=== PATIENT | male | born 1935 | race Caucasian/White ===

== ENCOUNTER → 2016-10-24 | Day surgery (SDC) | payer MEDICARE, OTHER ==
[~2016-10-24] MED LIST: Lactated Ringers 1,000 ML IV SCH; Propofol 200 MG/20 ML SDV ONE; fentaNYL 100 MCG/2 ML SDV ONE
[2016-10-24 10:45] VITALS: BP 125/75
--- NOTE | 2016-10-24 12:38 | OR ---
DATE OF PROCEDURE: 10/24/2016 PREOPERATIVE DIAGNOSIS: History of precancerous colon polyps. POSTOPERATIVE DIAGNOSES: Small right colon polyp, diverticulosis, history of precancerous colon polyps. PROCEDURE: Colonoscopy to the cecum with biopsy resection of small right colon polyp. SURGEON: David Cavazos MD. ANESTHESIA: IV anesthesia with monitored anesthesia care. INDICATION: This 81-year-old white male is referred for a colonoscopy. He has a history of precancerous colon polyps. His last colonoscopic exam was done about a year ago , he says. I counseled him for a colonoscopy with possible biopsy and/or polypectomy including risks and alternatives, and he gave his informed consent to proceed. DESCRIPTION OF PROCEDURE: The patient was placed in the left lateral decubitus position. IV anesthesia was administered by the Anesthesia Service. Time-out was held. A rectal exam was performed, which was unremarkable. The flexible video Olympus colonoscope was introduced through his anus, up his rectum, and out his colon all the way to the cecum. En route, we saw several left-sided diverticula. There was no bleeding or inflammation associated with them. Also en route in the right colon, we saw a small polyp, which was removed with a few bites of the biopsy forceps. Once the cecum was reached, the scope was slowly withdrawn, examining the mucosa throughout. No additional mucosal abnormalities were noted. The scope was retroflexed in the rectum with the distal rectum appearing unremarkable. The scope was straightened and removed. He tolerated the procedure well. David Cavazos MD /[id number] [facility]
== END ==
LOC: JP.SDS 07:03
PROVIDERS: ATTEND Surgery
DX: Z12.11 Encounter for screening for malignant neoplasm of colon (principal); D12.6 Benign neoplasm of colon, unspecified; Z86.010 Personal history of colon polyps; K57.30 Diverticulosis of large intestine without perforation or abscess without bleeding; I25.10 Atherosclerotic heart disease of native coronary artery without angina pectoris; E78.00 Pure hypercholesterolemia, unspecified; Z88.1 Allergy status to other antibiotic agents; Z88.8 Allergy status to other drugs, medicaments and biological substances; Z95.1 Presence of aortocoronary bypass graft; Z98.890 Other specified postprocedural states
CPT/HCPCS: 45380; 88305; J2704; J3010; J7120

== ENCOUNTER 2019-10-08 06:32 | Day surgery (SDC) | payer MEDICARE, OTHER ==
[2019-10-08] MEDS ORDERED: Sodium Chloride 0.9% 1,000 ML IV SCH (07:00)
[2019-10-08] MEDS ORDERED: Propofol 200 MG/20 ML SDV ONE (07:12)
[2019-10-08] MEDS ORDERED: Midazolam 1 MG/ML 2 ML SDV ONE (07:12)
[2019-10-08] MEDS ORDERED: fentaNYL 100 MCG/2 ML SDV ONE (07:12)
[2019-10-08 09:11] VITALS: BP 111/70; PULSE 63
--- NOTE | 2019-10-08 10:38 | OR ---
DATE OF PROCEDURE: 10/08/2019 SURGEON: Raffi Moore MD PROCEDURE: Colonoscopy. FINDINGS: 1. Ascending colon polyp, approximately 5 mm, completely removed using cold biopsy forceps. 2. Transverse colon polyp, approximately 5 mm, completely removed using cold biopsy forceps. 3. Sigmoid colon polyp, approximately 8 mm, completely removed using hot snare wire device. 4. Diverticulosis, very mild and early. COMPLICATIONS: None. 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 ANESTHESIA: MAC. PREOPERATIVE DIAGNOSIS: History of colon polyps. POSTOPERATIVE DIAGNOSIS: History of colon polyps. RISKS: Risks, benefits, alternatives, and limitations including, but not limited to infection, bleeding, and perforation were explained the patient, who wished to proceed. PROCEDURE IN DETAIL: The patient was placed in left lateral decubitus position. Digital rectal exam was performed without abnormality. The scope was introduced and advanced atraumatically to the ileocecal valve. A photo was taken. The scope was brought back through the ascending, transverse, descending colon, and retroflexed. No evidence of old or new blood. The aforementioned polyps were identified and completely removed as described above. No abnormal bleeding was noted after removal. No abnormalities on retroflexion. The diverticulosis was described as mild and early without evidence of diverticulitis or bleeding. Greater than 8 minutes was spent removing the scope. The patient tolerated the procedure well. Raffi Moore MD /[id number]
== END 2019-10-08 09:41 | disposition home or self-care (01) ==
LOC: JP.SDS 06:32
PROVIDERS: ATTEND Surgery
DX: Z12.11 Encounter for screening for malignant neoplasm of colon (principal); D12.2 Benign neoplasm of ascending colon; D12.3 Benign neoplasm of transverse colon; K57.30 Diverticulosis of large intestine without perforation or abscess without bleeding; Z86.010 Personal history of colon polyps; Z88.0 Allergy status to penicillin; Z88.8 Allergy status to other drugs, medicaments and biological substances
CPT/HCPCS: 45380; 45385; J2250; J2704; J3010; J7030; 88305

== ENCOUNTER 2020-04-20 16:29 | Observation (INO) | payer MEDICARE, OTHER ==
[2020-04-20] MEDS ORDERED: Lidocaine 1% with EPINEPHrine 1:100,000 50 ML MDV INFILT ONE (18:02)
[2020-04-20] MEDS ORDERED: Lidocaine 1% with EPINEPHrine 1:100,000 50 ML MDV ONE (18:05)
--- NOTE | 2020-04-20 18:11 | CRLCT ---
INDICATION: Fall. Head injury. TECHNIQUE: Noncontrast CT images were acquired through the brain. COMPARISON: None. FINDINGS: Prominence of the ventricles and sulci compatible with moderate diffuse cerebral volume loss. No mass effect or midline shift. The basal cisterns are preserved. 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 Small to moderate infarction in the inferior left parietal and left occipital lobes is age-indeterminate, though likely subacute to chronic. Patchy hypoattenuation in the supratentorial white matter, suggesting moderate chronic microvascular ischemic changes. No acute intracranial hemorrhage or pathologic extra-axial fluid collection. Advanced intracranial atherosclerotic calcifications. The globes are symmetric. The calvarium is intact. The visualized paranasal sinuses and mastoid air cells are clear. IMPRESSION: 1. No acute intracranial hemorrhage. 2. Small to moderate infarction involving the inferior left parietal and left occipital lobes is age-indeterminate, though likely subacute to chronic. MRI could be obtained for further evaluation as clinically warranted. 3. Small to moderate chronic infarction involving the high medial left parietal lobe. 4. Suggested moderate chronic microvascular ischemic changes. 5. Moderate diffuse cerebral volume loss. Please note that all CT scans at this facility use dose modulation, iterative reconstruction, and/or weight-based dosing when appropriate to reduce radiation dose to as low as reasonably achievable. Dictated by Francois Cabrera MD @ Apr 20 2020 6:03PM Signed by Dr. Francois Cabrera @ Apr 20 2020 6:09PM
--- NOTE | 2020-04-20 18:17 | CRLCT ---
INDICATION: Fall. Head injury. TECHNIQUE: Noncontrast CT images were acquired through the cervical spine. COMPARISON: None. FINDINGS: The cervical lordosis is maintained. No acute fracture, spondylolisthesis, or traumatic subluxation. Degenerative changes at the atlantodental articulation. Moderately advanced disc height loss at C5-6 and C6-7. Posterior disc osteophyte complex mildly narrows the spinal canal at C5-6. Multilevel uncovertebral joint spurring and facet arthropathy contributing to moderately severe left neural foraminal stenosis at C5-6 and moderate left neural foraminal narrowing at C6-7. Atherosclerotic calcifications of the carotid bifurcations. IMPRESSION: 1. No acute fracture or traumatic subluxation. 2. Multilevel cervical spondylosis. Please note that all CT scans at this facility use dose modulation, iterative reconstruction, and/or weight-based dosing when appropriate to reduce radiation dose to as low as reasonably achievable. Dictated by Francois Cabrera MD @ Apr 20 2020 6:03PM Signed by Dr. Francois Cabrera @ Apr 20 2020 6:15PM
[2020-04-20] MEDS ORDERED: Bacitracin Oint 1 GM U/D Packet TOP ONE (18:29)
--- NOTE | 2020-04-20 18:58 | EDM.PDOC ---
ED HPI GENERAL MEDICAL PROBLEM - General Chief Complaint: Head Injury Stated Complaint: [facility] Time Seen by Provider: 04/20/20 16:35 Source of Information: Reports: Patient, EMS, Family History Limitations: Reports: Altered Mental Status (Initially altered mental status, improved rapidly) - History of Present Illness INITIAL COMMENTS - FREE TEXT/NARRATIVE: 85-year-old male who donated blood earlier today, was working in his garage, on his hands and knees when he felt woozy and lightheaded. The next thing he remembers he woke up here in the hospital. He sustained a head injury in the garage, possibly stood up and fainted and has some retrograde amnesia. He also may have collapsed in a lower position. When EMS arrived he was very confused, combative, and when they tried to move him he seemed to want to lean to the left like the left side was weak. Speech was garbled. He was transferred urgently to the emergency room. He was obviously bleeding from the scalp. Onset: Sudden Duration: Hour(s): (Within the last hour) Location: Reports: Head (Head injury) Associated Symptoms: Reports: Confusion, Syncope, Weakness, Other (Unknown period of loss of consciousness) Neck Pain Score (Numeric/FACES): 8 - Related Data Allergies Allergy/AdvReac Type Severity Reaction Status Date / Time amoxicillin [Amoxicillin] Allergy Severe Rash Verified 10/20/16 10:36 clopidogrel [From Plavix] Allergy Rash Verified 10/20/16 10:36 Home Meds: Home Meds Fish Oil/Borage/Flax/Om3,6,9 1 [[place] 3-6-9 Complex Softgel] 3 cap PO DAILY 11/26/12 [History] Rosuvastatin [Crestor] 10 mg PO DAILY 11/26/12 [History] Tamsulosin HCl [Flomax] 0.4 mg PO DAILY 11/26/12 [History] Triamcinolone Acetonide [Kenalog 0.1% Crm] 1 applic TOP TID 11/26/12 [History] metroNIDAZOLE [Metrogel] 0.75 applicful TOP ASDIRECTED PRN 11/26/12 [History] Fluticasone Propionate [Flonase] 2 spray NS DAILY 10/09/15 [History] Betamethasone Dipropionate [Diprolene AF 0.05% Crm] 50 gm .XX DAILY 04/20/20 [History] Past Medical History HEENT History: Reports: Hard of Hearing, Impaired Vision Other HEENT History: wears glasses; hearing aides Cardiovascular History: Reports: Bypass, CAD, High Cholesterol, Syncope, Other (See Below) Gastrointestinal History: Reports: Colon Polyp Genitourinary History: Reports: Prostate Disorder, Renal Calculus Musculoskeletal History: 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, Other (See Below) Other Musculoskeletal History: left hand fingers Hematologic History: Reports: Blood Transfusion(s) Dermatologic History: Reports: Other (See Below) Other Dermatologic History: fungus- behind ears/ side of cheek - Infectious Disease History Infectious Disease History: Reports: Chicken Pox, Measles, Shingles - Past Surgical History HEENT Surgical History: Reports: Cataract Surgery Cardiovascular Surgical History: Reports: Carotid Endarterectomy, Coronary Artery Bypass, Other (See Below) Other Cardiovascular Surgeries/Procedures: CABG x4 in 1991 GI Surgical History: Reports: Colonoscopy, Hernia, Inguinal, Hernia Repair/Other, Polypectomy Male Surgical History: Reports: None Neurological Surgical History: Reports: None Musculoskeletal Surgical History: Reports: Shoulder Surgery Dermatological Surgical History: Reports: None Social & Family History - Family History Family Medical History: No Pertinent Family History HEENT: Reports: Cataract, Hearing Impairment, Impaired Vision Cardiac: Reports: Heart Failure GI: Reports: None : Reports: None OBGYN: Reports: None Musculoskeletal: Reports: None Neurological: Reports: None Psychiatric: Reports: None - Tobacco Use Tobacco Use Status *Q: Never Tobacco User - Caffeine Use Caffeine Use: Reports: Coffee - Recreational Drug Use Recreational Drug Use: No ED ROS GENERAL - Review of Systems Review Of Systems: See Below Constitutional: Denies: Fever, Chills HEENT: Denies: Vision Change Respiratory: Denies: Shortness of Breath GI/Abdominal: Denies: Abdominal Pain, Nausea, Vomiting Musculoskeletal: Reports: No Symptoms Skin: Reports: Other (Abrasions and lacerations are present on the frontal scalp) Neurological: Reports: Confusion, Dizziness, Syncope. Denies: Headache Psychiatric: Reports: No Symptoms ED EXAM, HEAD INJURY - Physical Exam Exam: See Below Text/Narrative:: Shortly after the patient arrived, his mental status started improving rapidly. Speech became clear and he started answering questions appropriately. He really had no specific complaints. General Appearance: Alert, No Apparent Distress Head: Other (Obvious injuries to the frontal scalp with a curved 2.5 cm scalp laceration and a second shallower laceration 1.5 cm above the left eyebrow) Eyes: Bilateral Eye: Normal Inspection, PERRL Nose: Other (A small amount of bruising over the nasal bridge) Neck: Non-Tender Respiratory: No Respiratory Distress, Lungs Clear Cardiovascular: Regular Rate, Rhythm Extremities: Normal Inspection Neurologic: No Motor/Sensory Deficits, Alert, Normal Mood/Affect, Oriented x 3 - Evin Coma Score Best Eye Response ([place]vin): (4) Open Spontaneously Best Verbal Response ([place]): (5) Oriented Best Motor Response ([place]): (6) Obeys Commands Course - Vital Signs Last Recorded V/S: Last Vital Signs Temp 96.1 F L 04/21/20 11:00 Pulse 61 04/21/20 11:00 Resp 18 04/21/20 11:00 BP 108/63 04/21/20 11:00 Pulse Ox 100 04/21/20 11:00 - Orders/Labs/Meds Meds: Medications Discontinued Medications Generic Name Dose Route Start Last Admin Trade Name Freq PRN Reason Stop Dose Admin Acetaminophen 650 mg 04/20/20 20:30 04/21/20 07:26 Acetaminophen 325 Mg Tab PO 650 mg Q4H PRN Administration Pain (Mild 1-3)/fever Bacitracin 1 dose 04/20/20 18:29 04/20/20 18:35 Bacitracin Oint 1 Gm U/D Packet TOP 04/20/20 18:30 1 dose ONETIME ONE Administration Sodium Chloride 1,000 mls @ 125 mls/hr 04/20/20 20:00 04/21/20 05:40 Normal Saline IV 125 mls/hr ASDIRECTED CHRISTINE Administration Lidocaine/Epinephrine Confirm 04/20/20 18:05 04/20/20 18:45 Lidocaine 1% With Epinephrine 1:100,000 50 Ml Mdv Administered 04/20/20 18:06 Not Given Dose 50 ml .ROUTE .STK-MED ONE Lidocaine/Epinephrine 30 ml 04/20/20 18:02 04/20/20 18:36 Lidocaine 1% With Epinephrine 1:100,000 50 Ml Mdv INFILT 04/20/20 18:03 30 ml ONETIME ONE Administration Morphine Sulfate 2 mg 04/20/20 20:30 Morphine 2 Mg/Ml Syringe IVPUSH Q2H PRN Pain (severe 7-10) Ondansetron HCl 4 mg 04/20/20 19:50 04/20/20 20:25 Ondansetron 4 Mg/2 Ml Sdv IVPUSH 04/20/20 19:51 4 mg ONETIME ONE Administration Ondansetron HCl 4 mg 04/20/20 20:30 Ondansetron 4 Mg Tab.Dis PO Q6H PRN Nausea able to take PO Ondansetron HCl 4 mg 04/20/20 20:30 Ondansetron 4 Mg/2 Ml Sdv IV Q4H PRN Nausea/Vomiting Oxycodone HCl 5 mg 04/20/20 20:30 Oxycodone 5 Mg Tab PO Q4H PRN Pain (moderate 4-6) Tamsulosin HCl 0.4 mg 04/21/20 09:00 04/21/20 10:15 Tamsulosin 0.4 Mg Cap.Er PO Not Given DAILY CHRISTINE - Re-Assessments/Exams Free Text/Narrative Re-Assessment/Exam: 04/20/20 18:57 Patient was sent to CT urgently for a head CT and cervical spine CT. By the time he arrived back from CT scan he was almost back to baseline. CTs were negative. The wounds on his forehead were cleaned with saline, infiltrated with 1% lidocaine with epinephrine, and the forehead laceration was closed with 3 tiffanie, the laceration above the eyebrow with three 5-0 Ethilon sutures. If he can ambulate without difficulty he can go home. 04/20/20 19:11 Patient tried ambulation twice, just too dizzy and unsteady to walk. He will be admitted for neuro checks and observation for significant concussion and closed head injury. Departure - Departure Time of Disposition: 20:20 Disposition: Admitted As Inpatient 66 Clinical Impression: Concussion with less than 1 hour loss of consciousness Scalp laceration Qualifiers: Encounter type: subsequent encounter Qualified Code(s): S01.01XD - Laceration without foreign body of scalp, subsequent encounter - Discharge Information Sepsis Event Note (ED) - Evaluation Sepsis Screening Result: No Definite Risk
[2020-04-20] MEDS ORDERED: Ondansetron 4 MG/2 ML SDV IVPUSH ONE (19:50)
--- NOTE | 2020-04-20 20:23 | PCM.HP.2 ---
H&P History of Present Illness - General Date of Service: 04/20/20 Admit Problem/Dx: Admission Diagnosis/Problem Admission Diagnosis/Problem Closed head injury Source of Information: Patient, EMS Notes Reviewed, Family ( Diann), Provider, RN History Limitations: Reports: No Limitations - History of Present Illness Initial Comments - Free Text/Narative: chief complaint: head injury This is a 85 year old male in Emergency Dept. with Diann, who reports Mateo is generally healthy, they started their day with a big breakfast then went to donate blood at 11:30 am. They then came home and Mateo went straight to the garage to work on stuff, he doesn't remember anything after that until he woke up in the hospital. Diann reports she found Mateo injured call for their Daughter who called the ambulance. Once in the ER, he started to come back to normal. Head and Neck CT which were normal. Mateo had two lacerations to his head and forehead, which were sutured. He denies any concerns except when he tried to stand up and walk he became dizzy and weak. unable to walk due to loss of balance. Onset of Symptoms: Reports: Sudden Duration of Symptoms: Reports: Hour(s):, Constant Location: Reports: Head, Generalized (weakness and vertigo) Severity: Moderate Improves with: Reports: Rest Worsens with: Reports: Movement Context: Reports: Trauma (unwitnessed fall in garage) Associated Symptoms: Reports: Nausea/Vomiting, Weakness Neck Pain Score (Numeric/FACES): 8 - Related Data Allergies/Adverse Reactions: Allergies Allergy/AdvReac Type Severity Reaction Status Date / Time amoxicillin [Amoxicillin] Allergy Severe Rash Verified 10/20/16 10:36 clopidogrel [From Plavix] Allergy Rash Verified 10/20/16 10:36 Home Medications: Home Meds Fish Oil/Borage/Flax/Om3,6,9 1 [[place] 3-6-9 Complex Softgel] 3 cap PO DAILY 11/26/12 [History] Rosuvastatin [Crestor] 10 mg PO DAILY 11/26/12 [History] Tamsulosin HCl [Flomax] 0.4 mg PO DAILY 11/26/12 [History] Triamcinolone Acetonide [Kenalog 0.1% Crm] 1 applic TOP TID 10/21/13 [History] metroNIDAZOLE [Metrogel] 0.75 applicful TOP ASDIRECTED PRN 11/26/12 [History] Fluticasone Propionate [Flonase] 2 spray NS DAILY 10/09/15 [History] Betamethasone Dipropionate [Diprolene AF 0.05% Crm] 50 gm .XX DAILY 04/20/20 [History] Past Medical History HEENT History: Reports: Hard of Hearing, Impaired Vision Other HEENT History: wears glasses; hearing aides Cardiovascular History: Reports: Bypass, CAD, High Cholesterol, Syncope, Other (See Below) Gastrointestinal History: Reports: Colon Polyp Genitourinary History: Reports: Prostate Disorder, Renal Calculus Musculoskeletal History: 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, Other (See Below) Other Musculoskeletal History: left hand fingers Hematologic History: Reports: Blood Transfusion(s) Dermatologic History: Reports: Other (See Below) Other Dermatologic History: fungus- behind ears/ side of cheek - Infectious Disease History Infectious Disease History: Reports: Chicken Pox, Measles, Shingles - Past Surgical History HEENT Surgical History: Reports: Cataract Surgery Cardiovascular Surgical History: Reports: Carotid Endarterectomy, Coronary Artery Bypass, Other (See Below) Other Cardiovascular Surgeries/Procedures: CABG x4 in 1991 GI Surgical History: Reports: Colonoscopy, Hernia, Inguinal, Hernia Repair/Other, Polypectomy Male Surgical History: Reports: None Neurological Surgical History: Reports: None Musculoskeletal Surgical History: Reports: Shoulder Surgery Dermatological Surgical History: Reports: None Social & Family History - Family History Family Medical History: No Pertinent Family History HEENT: Reports: Cataract, Hearing Impairment, Impaired Vision Cardiac: Reports: Heart Failure GI: Reports: None : Reports: None OBGYN: Reports: None Musculoskeletal: Reports: None Neurological: Reports: None Psychiatric: Reports: None - Tobacco Use Tobacco Use Status *Q: Never Tobacco User - Caffeine Use Caffeine Use: Reports: Coffee - Recreational Drug Use Recreational Drug Use: No - Living Situation & Occupation Living situation: Reports: Occupation: Retired (lives with Diann, retired after 35 years with [employer] before that a reyes. Has 6 children, 15 grandchildren and 29 great grandchildren.) H&P Review of Systems - Review of Systems: Review Of Systems: See Below General: Reports: Weakness HEENT: Reports: Ear Pain (left ear feel plugged and full of wax), Glasses, Vertigo (since fall today), Other (closed head injury with laceration repair to two sites on head.). 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 - got hand caught in the picker feeder when he was 25 years old.) Skin: Reports: Wound (repair of two laceration to head) Psychiatric: Reports: No Symptoms Neurological: Reports: Dizziness, Difficulty Walking, Weakness Hematologic/Lymphatic: Reports: No Symptoms Immunologic: Reports: No Symptoms Exam - Exam Exam: See Below - Vital Signs Vital Signs: Last Vital Signs Temp 97.3 F 04/20/20 17:15 Pulse 99 04/20/20 19:46 Resp 15 04/20/20 18:23 BP 110/59 L 04/20/20 19:46 Pulse Ox 98 04/20/20 18:23 Weight: 160 lb - Exam General: Alert, Oriented, Cooperative HEENT: PERRLA, Conjunctiva Clear, Other (dentures present). No: TMs Clear (left ear canal with scant ceremen, TM is dark and dull) Neck: Trachea Midline. 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) Peripheral Pulses: 2+: Radial (L), Radial (R) Skin: Warm, Dry, Other (head is wrapped in bandage after laceration repair of scalp and forehead wounds.) Neurological: Reflexes Equal Bilateral, Strength Equal Bilateral, Normal Speech, Normal Tone, Sensation Intact Neuro Extensive - Mental Status: Alert, Oriented x3, Normal Mood/Affect, Normal Cognition, Memory Intact Neuro Extensive - Motor, Sensory, Reflexes: Normal Reflexes Psychiatric: Alert, Normal Affect, Normal Mood - Patient Data Lab Results Last 24 hrs: Laboratory Results - last 24 hr 04/20/20 Range/Units 19:57 WBC 13.8 H (4.5-11.0) K/uL RBC 4.26 L (4.30-5.90) M/uL Hgb 12.8 (12.0-15.0) g/dL Hct 38.9 L (40.0-54.0) % MCV 91 (80-98) fL MCH 30 (27-31) pg MCHC 33 (32-36) % Plt Count 244 (150-400) K/uL Neut % (Auto) 85 H (36-66) % Lymph % (Auto) 7 L (24-44) % [place] % (Auto) 8 H (2-6) % Eos % (Auto) 0 L (2-4) % Baso % (Auto) 0 (0-1) % Result Diagrams: 04/20/20 19:57 04/20/20 19:57 Sepsis Event Note - Evaluation Sepsis Screening Result: No Definite Risk - Focused Exam Vital Signs: Vital Signs Temp Pulse Resp BP Pulse Ox 04/20/20 19:46 99 110/59 L 04/20/20 18:23 91 15 95/53 L 98 04/20/20 17:34 99 100/44 L 95 04/20/20 17:15 97.3 F 100 23 H 100/51 L 97 04/20/20 16:36 97.3 F 70 19 111/40 L 79 L - Problem List (1) Closed head injury with loss of consciousness of unknown duration SNOMED Code(s): 106581138987, 595554555725 ICD Code: S06.9X9A - UNSP INTRACRANIAL INJURY W LOC OF UNSP DURATION, INIT Status: Acute Priority: High Current Visit: Yes (2) Concussion with less than 1 hour loss of consciousness SNOMED Code(s): 332018265 ICD Code: S06.0X9A - CONCUSSION W LOSS OF CONSCIOUSNESS OF UNSP DURATION, INIT Status: Acute Priority: High Current Visit: Yes (3) Scalp laceration SNOMED Code(s): 943050095 ICD Code: S01.01XA - LACERATION WITHOUT FOREIGN BODY OF SCALP, INITIAL ENCOUNTER Status: Acute Priority: High Current Visit: Yes Qualifiers: Encounter type: subsequent encounter Qualified Code(s): S01.01XD - Laceration without foreign body of scalp, subsequent encounter Problem List Initiated/Reviewed/Updated: Yes Orders Last 24hrs: Active Orders 24 hr Category Date Time Status Patient Status Manage Transfer [TRANSFER] Routine ADT 04/20/20 19:51 Active AMYLASE [CHEM] Urgent Lab 04/20/20 19:57 Received COMPREHENSIVE METABOLIC PN,CMP [CHEM] Urgent Lab 04/20/20 19:57 Received INR,PT,PROTHROMBIN TIME [COAG] Urgent Lab 04/20/20 19:57 Received LIPASE [CHEM] Urgent Lab 04/20/20 19:57 Received MAGNESIUM [CHEM] Urgent Lab 04/20/20 19:57 Received UA W/MICROSCOPIC [URIN] Urgent Lab 04/20/20 19:49 Ordered Sodium Chloride 0.9% [Normal Saline] 1,000 ml Med 04/20/20 20:00 Active IV ASDIRECTED Resuscitation Status Routine Resus Stat 04/20/20 19:55 Ordered Medication Orders Sodium Chloride (Normal Saline) 1,000 mls @ 125 mls/hr IV ASDIRECTED [facility]RISTINE Assessment/Plan Comment:: ASSESSMENT AND PLAN: Closed head injury with concussion and LOC of unknown length. This is a 85 year old male who donated blood this morning at 1130 am, came home and fainted in his garage. Found by his Diann, ambulance was called he was agitated, confused, weak and dizzy. CT Head and C-spine are negative. Labs CBC, CMP, UA with micro pending. In the Emergency Room he was unable to be discharged to home due to loss of balance, continued dizziness and posterior neck pain. Discussed with and Mateo and agree to hospital stay overnight for monitoring. Admit to [address] [place] [address] for Observation and monitoring overnight. -IV fluid for rehydration Normal Saline 125 ml/hr -IV Morphine 2 mg every 2 hours prn pain -Percocet 5 mg po every 4 hours prn pain -Tylenol 650 mg po every 4 hours prn pain -IV Zofran 4 mg every 4 hours prn nausea -telemetry overnight -pulse oximetry prn -Neuro checks every 4 hours -consult to PT and OT for ambulation -in am MRI of brain with contrast Laceration to head -change dressing in am -apply bacitracin to wounds MAINTENANCE ISSUES -DVT prophylaxis; ambulate -GI prophylaxis; not indicated -Wilson catheter; not indicated -Nutrition; regular diet -Nicotine dependence; not required -consult to PT/OT for ambulation CODE STATUS-FULL ADMISSION STATUS-this patient will be admitted to observation status, expect no more than a one night hospital stay for evaluation and management of problems as outlined above. DISPOSITION-anticipate discharge to home after the hospital stay. PRIMARY CARE PROVIDER-Dr. Carvajal, [facility] HOSPITALIST- Dr. Lopez - Mortality Measure Prognosis:: Good
[2020-04-20] MEDS ORDERED: Ondansetron 4 MG Tab.DIS PO PRN (20:30)
[2020-04-20] MEDS ORDERED: Ondansetron 4 MG/2 ML SDV IV PRN (20:30)
[2020-04-20] MEDS ORDERED: Morphine 2 MG/ML SYRINGE IVPUSH PRN (20:30)
[2020-04-20] MEDS ORDERED: oxyCODONE 5 MG Tab PO PRN (20:30)
[2020-04-20] MEDS: Acetaminophen 325 MG Tab PO PRN (20:47)
[2020-04-20] MEDS: Sodium Chloride 0.9% 1,000 ML IV SCH (21:39)
[2020-04-21] MEDS: Acetaminophen 325 MG Tab PO PRN ×2 (02:59→07:26)
[2020-04-21] MEDS: Sodium Chloride 0.9% 1,000 ML IV SCH (05:40)
[2020-04-21] MEDS ORDERED: Tamsulosin 0.4 MG Cap.ER PO SCH (09:00)
[2020-04-21 11:19] VITALS: BP 108/63; PULSE 61
--- NOTE | 2020-04-21 11:20 | PCM.DCSUM1 ---
Discharge Summary - Hospital Course Brief History: Mr. Fields is an 85-year-old gentleman who was admitted to observation status through the emergency department following a fall at home and underlying symptoms of weakness, lightheadedness, and vertigo. - Discharge Data Discharge Date: 04/21/20 Discharge Disposition: Home, Self-Care 01 Condition: Fair - Referral to Home Health Primary Care Physician: PCP None - Discharge Diagnosis/Problem(s) (1) Scalp laceration SNOMED Code(s): 558490414 ICD Code: S01.01XA - LACERATION WITHOUT FOREIGN BODY OF SCALP, INITIAL ENCOUNTER Status: Acute Priority: High Current Visit: Yes Qualifiers: Encounter type: subsequent encounter Qualified Code(s): S01.01XD - Laceration without foreign body of scalp, subsequent encounter (2) Closed head injury with loss of consciousness of unknown duration SNOMED Code(s): 252321801971, 727143226482 ICD Code: S06.9X9A - UNSP INTRACRANIAL INJURY W LOC OF UNSP DURATION, INIT Status: Acute Priority: High Current Visit: Yes - Patient Summary/Data Consults: Consultations 04/20/20 20:30 OT Evaluation and Treatment [CONS] Routine Please Evaluate and Treat. OT Reason for Consult: Discharge Planning This query below is only for informational purposes and is not editable. Admission Diagnosis/Problem: Closed head injury PT Evaluation and Treatment [CONS] Routine Please Evaluate and Treat. PT Reason for Consult: Ambulation This query below is only for informational purposes and is not editable. Admission Diagnosis/Problem: Closed head injury Hospital Course: Mr. Fields is an 85-year-old gentleman who was admitted to observation status through the emergency department after he experienced a fall at home. On the morning of admission he had given blood but had not had much to eat through the day. He was in his shop and experienced significant symptoms of vertigo and weakness and fell to the ground injuring his head with abrasions on the forehead and scalp. He was brought into the emergency department for further evaluation. Laboratory tests were essentially unremarkable other than a modest elevation in white blood cell count. 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 Continued to experience some symptoms of vertigo and was admitted to observation status for further monitoring. By the following morning he was feeling significantly improved with no further lightheadedness or vertiginous symptoms. He was seen and evaluated by physical therapy and was able to walk in the hallway independently as well as transfer independently. On the morning of discharge we were unable to obtain MRI for further evaluation as it was unavailable. MRI of the brain with IV contrast will be obtained tomorrow as an outpatient. Follow-up appointment will be scheduled with his primary care provider within 1 week. Activity will be as tolerated and he will resume his usual diet. - Patient Instructions Diet: Usual Diet as Tolerated Activity: As Tolerated Other/Special Instructions: Please schedule follow-up appointment with primary care provider within 1 week. Please schedule outpatient MRI of the brain with IV contrast. - Discharge Plan *PRESCRIPTION DRUG MONITORING PROGRAM REVIEWED*: Not Applicable *COPY OF PRESCRIPTION DRUG MONITORING REPORT IN PATIENT BATOOL: Not Applicable Home Medications: Home Meds Fish Oil/Borage/Flax/Om3,6,9 1 [[place] 3-6-9 Complex Softgel] 3 cap PO DAILY 11/26/12 [History] Rosuvastatin [Crestor] 10 mg PO DAILY 11/26/12 [History] Tamsulosin HCl [Flomax] 0.4 mg PO DAILY 11/26/12 [History] Triamcinolone Acetonide [Kenalog 0.1% Crm] 1 applic TOP TID 11/26/12 [History] metroNIDAZOLE [Metrogel] 0.75 applicful TOP ASDIRECTED PRN 11/26/12 [History] Fluticasone Propionate [Flonase] 2 spray NS DAILY 10/09/15 [History] Betamethasone Dipropionate [Diprolene AF 0.05% Crm] 50 gm .XX DAILY 04/20/20 [History] - Discharge Summary/Plan Comment DC Time >30 min.: No - Patient Data Vitals - Most Recent: Last Vital Signs Temp 96.4 F L 04/21/20 07:15 Pulse 66 04/21/20 07:15 Resp 18 04/21/20 07:15 BP 144/64 H 04/21/20 07:15 Pulse Ox 97 04/21/20 07:15 Weight - Most Recent: 161 lb 3.2 oz I&O - Last 24 hours: Intake & Output 04/20/20 04/21/20 04/21/20 22:59 06:59 14:59 Intake Total 300 1472 780 Output Total 150 500 Balance 300 1322 280 Lab Results - Last 24 hrs: Laboratory Results - last 24 hr 04/20/20 04/20/20 04/20/20 Range/Units 19:57 19:57 19:57 WBC 13.8 H (4.5-11.0) K/uL RBC 4.26 L (4.30-5.90) M/uL Hgb 12.8 (12.0-15.0) g/dL Hct 38.9 L (40.0-54.0) % MCV 91 (80-98) fL MCH 30 (27-31) pg MCHC 33 (32-36) % Plt Count 244 (150-400) K/uL Neut % (Auto) 85 H (36-66) % Lymph % (Auto) 7 L (24-44) % [place] % (Auto) 8 H (2-6) % Eos % (Auto) 0 L (2-4) % Baso % (Auto) 0 (0-1) % PT 11.1 (9.5-12.0) sec INR 1.02 (0.80-1.20) Sodium 143 (140-148) mmol/L Potassium 4.3 (3.6-5.2) mmol/L Chloride 106 (100-108) mmol/L Carbon Dioxide 26 (21-32) mmol/L Anion Gap 11.2 (5.0-14.0) mmol/L BUN 27 H (7-18) mg/dL Creatinine 1.6 H (0.8-1.3) mg/dL Est Cr Clr Drug Dosing 32.66 mL/min Estimated GFR (MDRD) 41 L (>60) Glucose 89 (74-106) mg/dL Calcium 9.4 (8.5-10.1) mg/dL Magnesium 1.9 (1.8-2.4) mg/dL Total Bilirubin 0.3 (0.2-1.0) mg/dL AST 21 (15-37) U/L ALT 26 (12-78) U/L Alkaline Phosphatase 50 (46-116) U/L Total Protein 6.6 (6.4-8.2) g/dL Albumin 3.3 L (3.4-5.0) g/dL Globulin 3.3 (2.3-3.5) g/dL Albumin/Globulin Ratio 1.0 L (1.2-2.2) Amylase (25-115) U/L Lipase (73-393) U/L Urine Color (YELLOW) Urine Appearance (CLEAR) Urine pH (5.0-8.0) Ur Specific [place] (1.008-1.030) Urine Protein (NEGATIVE) mg/dL Urine Glucose (UA) (NEGATIVE) mg/dL Urine Ketones (NEGATIVE) mg/dL Urine Occult Blood (NEGATIVE) Urine Nitrite (NEGATIVE) Urine Bilirubin (NEGATIVE) Urine Urobilinogen (0.2-1.0) EU/dL Ur Leukocyte Esterase (NEGATIVE) Urine RBC (0-5) Urine WBC (0-5) Ur Epithelial Cells Amorphous Sediment Urine Bacteria Urine Mucus 04/20/20 04/21/20 04/21/20 Range/Units 19:57 02:57 05:53 WBC 9.3 (4.5-11.0) K/uL RBC 3.78 L (4.30-5.90) M/uL Hgb 11.1 L (12.0-15.0) g/dL Hct 35.0 L (40.0-54.0) % MCV 93 (80-98) fL MCH 29 (27-31) pg MCHC 32 (32-36) % Plt Count 229 (150-400) K/uL Neut % (Auto) 56 (36-66) % Lymph % (Auto) 31 (24-44) % [place] % (Auto) 12 H (2-6) % Eos % (Auto) 0 L (2-4) % Baso % (Auto) 0 (0-1) % PT (9.5-12.0) sec INR (0.80-1.20) Sodium (140-148) mmol/L Potassium (3.6-5.2) mmol/L Chloride (100-108) mmol/L Carbon Dioxide (21-32) mmol/L Anion Gap (5.0-14.0) mmol/L BUN (7-18) mg/dL Creatinine (0.8-1.3) mg/dL Est Cr Clr Drug Dosing mL/min Estimated GFR (MDRD) (>60) Glucose (74-106) mg/dL Calcium (8.5-10.1) mg/dL Magnesium (1.8-2.4) mg/dL Total Bilirubin (0.2-1.0) mg/dL AST (15-37) U/L ALT (12-78) U/L Alkaline Phosphatase (46-116) U/L Total Protein (6.4-8.2) g/dL Albumin (3.4-5.0) g/dL Globulin (2.3-3.5) g/dL Albumin/Globulin Ratio (1.2-2.2) Amylase 90 (25-115) U/L Lipase 88 (73-393) U/L Urine Color Yellow (YELLOW) Urine Appearance Clear (CLEAR) Urine pH 5.5 (5.0-8.0) Ur Specific [place] >= 1.030 (1.008-1.030) Urine Protein Negative (NEGATIVE) mg/dL Urine Glucose (UA) Negative (NEGATIVE) mg/dL Urine Ketones Negative (NEGATIVE) mg/dL Urine Occult Blood Negative (NEGATIVE) Urine Nitrite Negative (NEGATIVE) Urine Bilirubin Negative (NEGATIVE) Urine Urobilinogen 0.2 (0.2-1.0) EU/dL Ur Leukocyte Esterase Negative (NEGATIVE) Urine RBC 0-5 (0-5) Urine WBC 0-5 (0-5) Ur Epithelial Cells Few Amorphous Sediment Moderate Urine Bacteria Few Urine Mucus Not seen Med Orders - Current: Current Medications Acetaminophen (Acetaminophen 325 Mg Tab) 650 mg PO Q4H PRN PRN Reason: Pain (Mild 1-3)/fever Last Admin: 04/21/20 07:26 Dose: 650 mg Documented by: Sodium Chloride (Normal Saline) 1,000 mls @ 125 mls/hr IV ASDIRECTED [facility] Last Admin: 04/21/20 05:40 Dose: 125 mls/hr Documented by: Morphine Sulfate (Morphine 2 Mg/Ml Syringe) 2 mg IVPUSH Q2H PRN PRN Reason: Pain (severe 7-10) Ondansetron HCl (Ondansetron 4 Mg Tab.Dis) 4 mg PO Q6H PRN PRN Reason: Nausea able to take PO Ondansetron HCl (Ondansetron 4 Mg/2 Ml Sdv) 4 mg IV Q4H PRN PRN Reason: Nausea/Vomiting Oxycodone HCl (Oxycodone 5 Mg Tab) 5 mg PO Q4H PRN PRN Reason: Pain (moderate 4-6) Tamsulosin HCl (Tamsulosin 0.4 Mg Cap.Er) 0.4 mg PO DAILY [facility] Last Admin: 04/21/20 10:15 Dose: Not Given Documented by: Discontinued Medications Bacitracin (Bacitracin Oint 1 Gm U/D Packet) 1 dose TOP ONETIME ONE Stop: 04/20/20 18:30 Last Admin: 04/20/20 18:35 Dose: 1 dose Documented by: Lidocaine/Epinephrine (Lidocaine 1% With Epinephrine 1:100,000 50 Ml Mdv) Confirm Administered Dose 50 ml .ROUTE .STK-MED ONE Stop: 04/20/20 18:06 Last Admin: 04/20/20 18:45 Dose: Not Given Documented by: Lidocaine/Epinephrine (Lidocaine 1% With Epinephrine 1:100,000 50 Ml Mdv) 30 ml INFILT ONETIME ONE Stop: 04/20/20 18:03 Last Admin: 04/20/20 18:36 Dose: 30 ml Documented by: Ondansetron HCl (Ondansetron 4 Mg/2 Ml Sdv) 4 mg IVPUSH ONETIME ONE Stop: 04/20/20 19:51 Last Admin: 04/20/20 20:25 Dose: 4 mg Documented by: - Exam General: Reports: Alert, Oriented, Cooperative, Mild Distress Lungs: Reports: Clear to Auscultation, Normal Respiratory Effort Cardiovascular: Reports: Regular Rate, Regular Rhythm, No Murmurs GI/Abdominal Exam: Soft, Non-Tender, No Organomegaly, No Distention Neurological: Reports: Normal Speech, Normal Tone, Strength Equal Bilateral, Sensation Intact, Cranial Nerves Intact
== END 2020-04-21 12:15 | disposition home or self-care (01) ==
LOC: JP.ED 16:29 → JP.MS 19:51
PROVIDERS: ADMIT Hospitalist; ATTEND Hospitalist
DX: S06.0X9A Concussion with loss of consciousness of unspecified duration, initial encounter (principal); S01.01XA Laceration without foreign body of scalp, initial encounter; E78.00 Pure hypercholesterolemia, unspecified; I10 Essential (primary) hypertension; I25.10 Atherosclerotic heart disease of native coronary artery without angina pectoris; M47.812 Spondylosis without myelopathy or radiculopathy, cervical region; Z88.1 Allergy status to other antibiotic agents; Z88.8 Allergy status to other drugs, medicaments and biological substances; Z95.5 Presence of coronary angioplasty implant and graft; Z86.010 Personal history of colon polyps; Z79.899 Other long term (current) drug therapy; Z98.890 Other specified postprocedural states; W19.XXXA Unspecified fall, initial encounter
CPT/HCPCS: 12013; 36415; 70450; 72125; 80053; 81001; 82150; 83690; 83735; 85025; 85610; 97116; 97162; 97165; 99284; A9270; J2405; J7030

== ENCOUNTER 2022-01-10 06:25 | Day surgery (SDC) | payer MEDICARE, OTHER ==
[2022-01-10] MEDS ORDERED: Acetaminophen 500 MG Tab PO ONE (06:45)
[2022-01-10] MEDS ORDERED: Dextrose 5%-Lactated Ringers 1,000 ML IV SCH (07:00)
[2022-01-10] MEDS ORDERED: Propofol 200 MG/20 ML SDV ONE (07:11)
[2022-01-10] MEDS ORDERED: Midazolam 1 MG/ML 2 ML SDV ONE (07:11)
[2022-01-10] MEDS ORDERED: fentaNYL 100 MCG/2 ML SDV ONE (07:11)
[2022-01-10] MEDS ORDERED: Bupivacaine 0.5% 30 ML SDV ONE (07:20)
[2022-01-10] MEDS ORDERED: Meropenem 500 MG SDV ONE (07:20)
[2022-01-10] MEDS ORDERED: Lidocaine 1% with EPINEPHrine 1:100,000 50 ML MDV ONE (07:20)
[2022-01-10] MEDS ORDERED: ceFAZolin 2 GM in Sodium Chloride 0.9% 50 ML IV ONE (08:30)
[2022-01-10 10:35] VITALS: BP 173/71; PULSE 55
== END 2022-01-10 11:01 | disposition home or self-care (01) ==
LOC: JP.SDS 06:25
PROVIDERS: ATTEND Surgery
DX: K40.31 Unilateral inguinal hernia, with obstruction, without gangrene, recurrent (principal); G57.81 Other specified mononeuropathies of right lower limb; E78.5 Hyperlipidemia, unspecified; Z79.899 Other long term (current) drug therapy; Z95.1 Presence of aortocoronary bypass graft; Z88.5 Allergy status to narcotic agent; Z88.0 Allergy status to penicillin; Z88.8 Allergy status to other drugs, medicaments and biological substances
CPT/HCPCS: 49521; 64772; 88302; 88342; A9270; C1713; C1781; J0690; J2250; J2704; J3010; J3490; J7121; J2185

== ENCOUNTER 2022-09-13 05:33 | Day surgery (SDC) | payer MEDICARE, OTHER ==
[2022-09-13] MEDS ORDERED: Dextrose 5%-Lactated Ringers 1,000 ML IV SCH (06:00)
[2022-09-13] MEDS ORDERED: Lidocaine 1% with EPINEPHrine 1:100,000 50 ML MDV ONE (06:34)
[2022-09-13] MEDS ORDERED: Meropenem 500 MG SDV ONE (06:34)
[2022-09-13] MEDS ORDERED: Bupivacaine 0.5% 50 ML MDV ONE (06:34)
[2022-09-13] MEDS ORDERED: Propofol 200 MG/20 ML SDV ONE (07:11)
[2022-09-13] MEDS ORDERED: fentaNYL 100 MCG/2 ML SDV ONE (07:11)
[2022-09-13] MEDS ORDERED: Midazolam 1 MG/ML 2 ML SDV ONE (07:11)
[2022-09-13] MEDS ORDERED: ceFAZolin 2 GM in Premix Bag 1 BAG IV ONE (07:15)
[2022-09-13] MEDS ORDERED: Linezolid 600 MG/300 ML Premix Bag IRR ONE (07:55)
[2022-09-13 09:48] VITALS: BP 167/71; PULSE 56
== END 2022-09-13 10:00 | disposition home or self-care (01) ==
LOC: JP.SDS 05:33
PROVIDERS: ATTEND Surgery
DX: K40.91 Unilateral inguinal hernia, without obstruction or gangrene, recurrent (principal); I25.10 Atherosclerotic heart disease of native coronary artery without angina pectoris; Z95.1 Presence of aortocoronary bypass graft; Z95.9 Presence of cardiac and vascular implant and graft, unspecified; Z88.0 Allergy status to penicillin; Z88.5 Allergy status to narcotic agent; Z88.8 Allergy status to other drugs, medicaments and biological substances; Z98.890 Other specified postprocedural states
CPT/HCPCS: 49520; C1713; C1781; J0131; J0690; J2020; J2185; J2250; J2704; J3010; J3490; J7121

== ENCOUNTER 2024-04-20 14:25 | Inpatient (IN) | payer MEDICARE, OTHER ==
[2024-04-20] MEDS ORDERED: Sodium Chloride 0.9% 10 ML Syringe FLUSH PRN ×2 (14:36→19:48)
[2024-04-20] MEDS: Sodium Chloride 0.9% 1,000 ML IV ONE ×2 (15:01→16:26)
[2024-04-20 15:04] LABS: BASOPHILS ABSOLUTE AUTO 0.06 K/uL (0.00-0.10); BASOPHILS PERCENT AUTO 0.8 % (0.1-1.3); EOSINOPHILS PERCENT AUTO 0.1 % (0.0-5.4); HEMATOCRIT 42.7 % (38.4-49.7); HEMOGLOBIN 14.8 g/dL (12.9-16.9); IMMATURE GRAN ABSOLUTE AUTO 0.03 K/uL (0.00-0.23); IMMATURE GRAN PERCENT AUTO 0.4 % (0.0-0.7); LYMPHOCYTES ABSOLUTE AUTO 1.29 K/uL (0.8-3.3); LYMPHOCYTES PERCENT AUTO 16.8 % (11.4-47.7); MEAN CORPUSCULAR HEMOGLOBIN 31.6 pg (31.6-35.5); MEAN CORPUSCULAR HGB CONC 34.7 g/dL (31.6-35.5); MEAN CORPUSCULAR VOLUME 91.2 fL (81.4-99.0); MONOCYTES ABSOLUTE AUTO 0.85 K/uL (0.20-0.90); MONOCYTES PERCENT AUTO 11.1 % (3.3-12.6); NEUTROPHILS ABSOLUTE AUTO 5.45 K/uL (1.0-7.6); NEUTROPHILS PERCENT AUTO 70.8 % (40.0-78.1); PLATELET COUNT,PLT 188 K/uL (130-375); RED BLOOD CELL COUNT 4.68 M/uL (4.14-5.76); WHITE BLOOD CELL COUNT,WBC 7.7 K/uL (3.2-11.0)
[2024-04-20 15:05] LABS: EOSINOPHILS ABSOLUTE AUTO 0.01 K/uL (0.00-0.40)
[2024-04-20 15:22] LABS: C-REACTIVE PROTEIN 1.58 mg/dL (<0.50); CALCIUM 8.9 mg/dL (8.5-10.1); CREATININE 1.3 mg/dL (0.8-1.3); EST CRCL DRUG DOSING (CG) 37.27 mL/min; POTASSIUM,K 3.7 mmol/L (3.6-5.2)
[2024-04-20 15:24] LABS: ANION GAP 17.7 mmol/L (5.0-14.0)
[2024-04-20 15:28] LABS: LACTIC ACID 1.3 mmol/L (0.4-2.0)
[2024-04-20 15:47] LABS: APPEARANCE,URINE CLEAR (CLEAR); BILIRUBIN,URINE NEGATIVE (NEGATIVE); COLOR,URINE YELLOW (YELLOW); GLUCOSE,URINE NEGATIVE (NEGATIVE); KETONES,URINE NEGATIVE (NEGATIVE); LEUKOCYTE ESTERASE,URINE NEGATIVE (NEGATIVE); NITRITE,URINE NEGATIVE (NEGATIVE); OCCULT BLOOD,URINE TRACE-INTACT (NEGATIVE); PROTEIN,URINE 100 mg/dL (NEGATIVE)
[2024-04-20] MEDS: Acetaminophen 500 MG Tab PO ONE (15:47)
[2024-04-20 16:03] LABS: AMORPHOUS SEDIMENT,URINE NOT SEEN; BACTERIA,URINE RARE; EPITHELIAL CELLS,URINE RARE; MUCUS,URINE FEW; RBC,URINE 0-5 (0-5); WBC,URINE 0-5 (0-5)
[2024-04-20] MEDS: Benzonatate 100 MG Cap PO ONE (17:33)
[2024-04-20] MEDS ORDERED: Ondansetron 4 MG/2 ML SDV IV PRN (19:48)
[2024-04-20] MEDS ORDERED: Albuterol 0.083% 2.5 MG/3 ML Neb Soln NEB PRN (19:48)
[2024-04-20] MEDS ORDERED: Polyethylene Glycol 3350 Powder 17 GM Packet PO PRN (19:48)
[2024-04-20] MEDS ORDERED: Benzonatate 100 MG Cap PO PRN (19:48)
[2024-04-20] MEDS: Oseltamivir 75 MG Cap PO ONE (20:10)
[2024-04-20] MEDS: Sodium Chloride 0.9% 1,000 ML IV SCH (20:13)
[2024-04-20] MEDS: Acetaminophen 325 MG Tab PO PRN (23:51)
[2024-04-21 05:50] LABS: HEMATOCRIT 41.2 % (38.4-49.7); HEMOGLOBIN 13.9 g/dL (12.9-16.9); MEAN CORPUSCULAR HEMOGLOBIN 31.2 pg (31.6-35.5); MEAN CORPUSCULAR HGB CONC 33.7 g/dL (31.6-35.5); MEAN CORPUSCULAR VOLUME 92.6 fL (81.4-99.0); RED BLOOD CELL COUNT 4.45 M/uL (4.14-5.76); WHITE BLOOD CELL COUNT,WBC 7.3 K/uL (3.2-11.0)
[2024-04-21 05:58] LABS: CALCIUM 8.3 mg/dL (8.5-10.1); CREATININE 1.2 mg/dL (0.8-1.3); EST CRCL DRUG DOSING (CG) 40.38 mL/min; MAGNESIUM 1.5 mg/dL (1.8-2.4); POTASSIUM,K 3.8 mmol/L (3.6-5.2)
[2024-04-21 06:01] LABS: ANION GAP 12.8 mmol/L (5.0-14.0)
[2024-04-21] MEDS: Tamsulosin 0.4 MG Cap.ER PO SCH (08:26)
[2024-04-21] MEDS: Aspirin 81 MG Tab.EC PO SCH (08:26)
[2024-04-21] MEDS: Rosuvastatin 10 MG Tab PO SCH (08:27)
[2024-04-21] MEDS: Enoxaparin 40 MG/0.4 ML Syringe SUBCUT SCH (08:27)
[2024-04-21] MEDS: Metoprolol Succinate 25 MG Tab.ER PO SCH (08:27)
[2024-04-21] MEDS: Fluticasone NASAL Spray 16 GM Bottle NASBOTH SCH (08:27)
[2024-04-21] MEDS ORDERED: Aspirin 81 MG Tab.Chew PO SCH (09:00)
[2024-04-21] MEDS: Oseltamivir 30 MG Cap PO SCH (09:11)
[2024-04-21] MEDS: Magnesium Oxide 400 MG Tab PO SCH (10:51)
[2024-04-21] MEDS: Magnesium Sulf/Wat 2 GM/50 mL 2 GM in Premix Bag 1 BAG IV SCH (10:51)
[2024-04-21] MEDS: Benzocaine/Cetylpyridinium/Menthol Lozenge MUCMEM PRN (11:59)
[2024-04-21] MEDS: Melatonin 3 MG Tab PO PRN (21:46)
[2024-04-21] MEDS: Mometasone Furoate Nasal Spray 17 GM Canister NAS SCH (22:50)
[2024-04-22] MEDS: Phenol/Sodium Phenolate Spray 180 ML Bottle MUCMEM PRN (10:30)
[2024-04-23 11:00] VITALS: BP 123/70; PULSE 72
== END 2024-04-23 11:45 | disposition home or self-care (01) | DRG 193 ==
LOC: JP.ED 14:25 → JP.MS 19:14
PROVIDERS: ADMIT Nurse Practitioner; ATTEND Internal Medicine
DX: J10.1 Influenza due to other identified influenza virus with other respiratory manifestations (principal); R09.02 Hypoxemia; J96.01 Acute respiratory failure with hypoxia; G93.49 Other encephalopathy; Z86.73 Personal history of transient ischemic attack (TIA), and cerebral infarction without residual deficits; N40.0 Benign prostatic hyperplasia without lower urinary tract symptoms; I25.10 Atherosclerotic heart disease of native coronary artery without angina pectoris; G31.84 Mild cognitive impairment of uncertain or unknown etiology; Z88.0 Allergy status to penicillin; Z88.5 Allergy status to narcotic agent; H91.90 Unspecified hearing loss, unspecified ear; H26.9 Unspecified cataract; H54.7 Unspecified visual loss; E78.00 Pure hypercholesterolemia, unspecified; F15.90 Other stimulant use, unspecified, uncomplicated; E86.0 Dehydration; Z95.1 Presence of aortocoronary bypass graft; Z88.8 Allergy status to other drugs, medicaments and biological substances; Z88.1 Allergy status to other antibiotic agents; Z79.899 Other long term (current) drug therapy; Z79.02 Long term (current) use of antithrombotics/antiplatelets; Z79.82 Long term (current) use of aspirin; Z87.442 Personal history of urinary calculi; Z98.49 Cataract extraction status, unspecified eye; Z98.890 Other specified postprocedural states; Z87.891 Personal history of nicotine dependence; Z87.81 Personal history of (healed) traumatic fracture
CPT/HCPCS: 36415; 71045 ×2; 80048; 81001; 83605; 84145; 85025; 86140; 87040 ×2; 87428; 96360; 96361; 99285; A9270 ×2; J7030 ×2; 83735; 85027; 97161-GP; 99222; 99232; 99238; J1650; J3475